=== PATIENT | male | born 1965 | race Caucasian/White ===

== ENCOUNTER 2017-04-26 13:30 | Emergency (ER) | payer OTHER ==
[~2017-04-26] VITALS: Ht 175.3 cm; Wt 97.8 kg
[2017-04-26] MEDS ORDERED: ZITHROMAX Z-PA250 MG PO (15:44)
[2017-04-26] MEDS ORDERED: MEDROL DOSEPAK4 MG PO (15:44)
[2017-04-26 15:58] VITALS: BP 119/86
== END 2017-04-26 15:59 | disposition home or self-care (01) ==
LOC: EME 13:30
DX: J20.9 Acute bronchitis, unspecified (principal); Z88.8 Allergy status to other drugs, medicaments and biological substances
CPT/HCPCS: 71046; 87502; 99281; 99284